=== PATIENT | male | born 1980 | race Caucasian/White ===

== ENCOUNTER 2016-10-15 14:14 | Inpatient (IN) | payer OTHER ==
[2016-10-15] MEDS ORDERED: TYLENOL ONE (14:29)
[2016-10-15] MEDS ORDERED: TYLENOL PO ONE (14:30)
--- NOTE | 2016-10-15 14:59 | Emergency Department Report ---
Chief Complaint: Dyspnea/Respdistress Stated Complaint: COUGH Time Seen by Provider: 10/15/16 14:53 - HPI History of Present Illness: 36-year-old male presents today with persistent productive cough 6 months. Patient was given azithromycin in July and Robitussin without relief. Positive for shortness of breath. Denies chest pain. Also complaining of his throat feeling scratchy. - ROS Review of Systems: Per HPI - Exam Vital Signs: Vital Signs 10/15/16 14:26 Temperature 101.4 F H Pulse Rate 85 Respiratory 18 Rate Blood Pressure 146/101 O2 Sat by Pulse 98 Oximetry Physical Exam: General: 36-year-old male in no acute distress. Well-developed, well-nourished. CV: Regular rate and rhythm. Lungs: Clear to auscultation bilaterally. Abdomen: No tenderness to palpation. MSE screening note: Focused history and physical exam performed. Due to findings the following was ordered: ED Disposition for MSE Condition: Stable
[2016-10-15 15:38] LABS: Hematocrit 45.9 % (35.5-45.6); Hemoglobin 15.3 gm/dl (11.8-15.2); Mean Corpuscular HGB Conc 34 % (32-34); Mean Corpuscular Hemoglobin 32 pg (28-32); Mean Corpuscular Volume 96 fl (84-94); Platelet Count 193 K/mm3 (140-440); Red Blood Count 4.76 M/mm3 (3.65-5.03); Red Cell Distribution Width 14.6 % (13.2-15.2); White Blood Count 9.9 K/mm3 (4.5-11.0)
[2016-10-15 15:46] LABS: BUN/Creatinine Ratio 10.66; Calcium 9.4 mg/dL (8.4-10.2); Potassium 4.2 mmol/L (3.6-5.0)
--- NOTE | 2016-10-15 15:46 | XRay Report ---
CHEST 2 VIEWS INDICATION: Dyspnea. Wheezing, productive cough for 6 months. COMPARISON: None similar at this institution. FINDINGS: PA and lateral chest radiographs, 4 images, demonstrate normal cardiomediastinal silhouette. Clear lungs. Intact bones. CONCLUSION: No acute disease in the chest. Thank you for the opportunity to participate in this patient's care.
[2016-10-15 15:47] LABS: Creatine Kinase MB 2.5 ng/mL (0.0-4.0)
[2016-10-15 15:49] LABS: Creatine Kinase 384 units/L (55-170)
[2016-10-15 16:57] LABS: Basophils % (Manual) 0 % (0.0-1.8); Blastocytes % (Manual) 0 %
[2016-10-15 16:58] LABS: Diff Status Complete; Platelet Estimate Consistent w Auto; RBC Morphology Normal
[2016-10-16] MEDS ORDERED: ATROVENT IH ONE (02:51)
[2016-10-16] MEDS ORDERED: PROVENTIL IH ONE (02:52)
[2016-10-16] MEDS ORDERED: TYLENOL PO ONE (02:52)
[2016-10-16] MEDS ORDERED: TORADOL IV ONE (02:52)
[2016-10-16] MEDS ORDERED: MAGNESIUM SULFATE 2GM/50ML 50 ML IV ONE (02:52)
[2016-10-16] MEDS ORDERED: LEVAQUIN 750MG/150ML 150 ML IV ONE (02:52)
--- NOTE | 2016-10-16 02:53 | Emergency Department Report ---
ED General Adult HPI - General Chief complaint: Dyspnea/Respdistress Stated complaint: COUGH Time Seen by Provider: 10/15/16 14:53 Source: patient, RN notes reviewed Mode of arrival: Ambulatory Limitations: Physical Limitation - History of Present Illness Initial comments: This is a 36-year-old male, previously unknown to me. His primary care doctor is Dr. Osorio. Has a past medical history of hypertension, consumes tobacco and cannabis recreationally. Patient presents to the ER complaining of chest pain and shortness of breath. Admits to fever. Symptoms present for 2 days. There is no lower extremity pain, no lower extremity swelling. No recent trips greater than 4 hours. No recent hospital admissions. Positive cough. Positive mucous production. Denies cocaine use. 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 He states significant decrease in exercise tolerance over the past few days. -: Gradual, days(s) Location: chest Severity scale (0 -10): 3 Quality: aching Consistency: intermittent Improves with: rest Worsens with: movement Associated Symptoms: chest pain, cough, fever/chills, loss of appetite, shortness of breath, weakness - Related Data Allergies Allergy/AdvReac Type Severity Reaction Status Date / Time garlic Allergy Swelling Verified 10/15/16 14:26 ED Review of Systems ROS: Stated complaint: COUGH Other details as noted in HPI Constitutional: fever, malaise, weakness Eyes: denies: eye discharge ENT: congestion. denies: epistaxis Respiratory: shortness of breath, SOB with exertion, SOB at rest Cardiovascular: chest pain, dyspnea on exertion Gastrointestinal: denies: abdominal pain, nausea, diarrhea Genitourinary: denies: urgency, dysuria Musculoskeletal: denies: back pain, joint swelling, arthralgia Skin: denies: rash, lesions Neurological: weakness. denies: headache, paresthesias Psychiatric: anxiety ED Past Medical Hx - Past Medical History Previous Medical History?: Yes Hx Hypertension: Yes - Surgical History Additional Surgical History: Left foot broken/had surgery on - Social History Smoking Status: Current Some Day Smoker Substance Use Type: Alcohol ED Physical Exam - General Limitations: Physical Limitation General appearance: alert, in distress - Head Head exam: Present: atraumatic, normocephalic - Eye Eye exam: Present: normal appearance, EOMI. Absent: nystagmus - ENT ENT exam: Present: normal exam, normal orophraynx, mucous membranes moist, normal external ear exam - Neck Neck exam: Present: normal inspection, full ROM. Absent: tenderness, meningismus - Respiratory Respiratory exam: Present: respiratory distress, wheezes, rhonchi - Cardiovascular Cardiovascular Exam: Present: regular rate, normal rhythm, normal heart sounds. Absent: bradycardia, tachycardia, irregular rhythm, systolic murmur, diastolic murmur, rubs, gallop - GI/Abdominal GI/Abdominal exam: Present: soft, normal bowel sounds. Absent: distended, tenderness, guarding, rigid, pulsatile mass - Rectal Rectal exam: Present: deferred - Extremities Exam Extremities exam: Present: normal inspection, full ROM, normal capillary refill. Absent: tenderness, pedal edema, joint swelling, calf tenderness - Back Exam Back exam: Present: normal inspection, full ROM. Absent: tenderness, CVA tenderness (R), CVA tenderness (L), muscle spasm, paraspinal tenderness, vertebral tenderness - Neurological Exam Neurological exam: Present: alert, oriented X3, other (Extraocular movements intact. Tongue midline. No facial droop. Facial sensation intact to light touch in the V1, V2, V3 distribution bilaterally. 5 and 5 strength in 4 extremities.. Sensation is intact to light touch in 4 extremities.). Absent: motor sensory deficit - Psychiatric Psychiatric exam: Present: normal affect, normal mood - Skin Skin exam: Present: warm, dry, intact, normal color. Absent: rash ED Course Vital Signs 10/15/16 10/16/16 10/16/16 14:26 01:21 01:54 Temperature 101.4 F H 99.7 F H Pulse Rate 85 93 H Pulse Rate [ Bilateral Throughout] Respiratory 18 20 Rate Respiratory Rate [Bilateral Throughout] Blood Pressure 146/101 Blood Pressure 173/93 [Right] O2 Sat by Pulse 98 93 90 Oximetry 10/16/16 10/16/16 10/16/16 02:05 02:08 03:00 Temperature 99.4 F Pulse Rate 83 Pulse Rate [ Bilateral Throughout] Respiratory 22 Rate Respiratory Rate [Bilateral Throughout] Blood Pressure 122/70 151/95 Blood Pressure 122/70 [Right] O2 Sat by Pulse 94 94 92 Oximetry 10/16/16 10/16/16 03:15 04:16 Temperature Pulse Rate Pulse Rate [ 91 H 89 Bilateral Throughout] Respiratory Rate Respiratory 24 22 Rate [Bilateral Throughout] Blood Pressure Blood Pressure [Right] O2 Sat by Pulse Oximetry - Reevaluation(s) Reevaluation #1: 10/16/16 04:43 Differential diagnosis: Bronchitis, pneumonia, viral syndrome, pericarditis, myocarditis, cardiomyopathy Assessment and plan: 36-year-old male with cough, mucus production, wheezing, febrile illness. On room air, he desaturates to 83%. He is diaphoretic with fairly labored breathing. He has no pulmonary embolus or DVT risk factors, and he is low risk by well's criteria. He felt improved albuterol, Atrovent, steroids. Blood cultures are drawn. Antibiotics administered. Given hypoxemia , abnormal EKG, patient to be admitted for further management. Hospital physician, Dr. Giles, accepts the patient to his service. Reevaluation #2: 10/16/16 04:44 I will defer to the inpatient team to follow up on the influenza swab. ED Medical Decision Making - Lab Data Result diagrams: 10/15/16 15:11 10/15/16 15:11 Vital Signs 10/15/16 10/16/16 10/16/16 14:26 01:21 01:54 Temperature 101.4 F H 99.7 F H Pulse Rate 85 93 H Pulse Rate [ Bilateral Throughout] Respiratory 18 20 Rate Respiratory Rate [Bilateral Throughout] Blood Pressure 146/101 Blood Pressure 173/93 [Right] O2 Sat by Pulse 98 93 90 Oximetry 10/16/16 10/16/16 10/16/16 02:05 02:08 03:00 Temperature 99.4 F Pulse Rate 83 Pulse Rate [ Bilateral Throughout] Respiratory 22 Rate Respiratory Rate [Bilateral Throughout] Blood Pressure 122/70 151/95 Blood Pressure 122/70 [Right] O2 Sat by Pulse 94 94 92 Oximetry 10/16/16 10/16/16 03:15 04:16 Temperature Pulse Rate Pulse Rate [ 91 H 89 Bilateral Throughout] Respiratory Rate Respiratory 24 22 Rate [Bilateral Throughout] Blood Pressure Blood Pressure [Right] O2 Sat by Pulse Oximetry Labs 10/15/16 10/15/16 10/15/16 15:11 15:11 15:11 WBC 9.9 RBC 4.76 Hgb 15.3 H Hct 45.9 H MCV 96 H MCH 32 MCHC 34 RDW 14.6 Plt Count 193 Eos % (Auto) [employer]airer Add Manual Diff Complete Total Counted 100 Seg Neuts % (Manual) 66.0 Band Neutrophils % 0 Lymphocytes % (Manual) 6.0 L Reactive Lymphs % (Man) 0 Monocytes % (Manual) 11.0 H Eosinophils % (Manual) 17.0 H Basophils % (Manual) 0 Metamyelocytes % 0 Myelocytes % 0 Promyelocytes % 0 Blast Cells % 0 Nucleated RBC % Not Reportable Seg Neutrophils # Man 6.5 Band Neutrophils # 0.0 Lymphocytes # (Manual) 0.6 L Abs React Lymphs (Man) 0.0 Monocytes # (Manual) 1.1 H Eosinophils # (Manual) 1.7 H Basophils # (Manual) 0.0 Metamyelocytes # 0.0 Myelocytes # 0.0 Promyelocytes # 0.0 Blast Cells # 0.0 WBC Morphology Not Reportable Hypersegmented Neuts Not Reportable Hyposegmented Neuts Not Reportable Hypogranular Neuts Not Reportable Smudge Cells Not Reportable Toxic Granulation Not Reportable Toxic Vacuolation Not Reportable Dohle Bodies Not Reportable Pelger-Huet Anomaly Not Reportable Lizette Rods Not Reportable Platelet Estimate Consistent w auto Clumped Platelets Not Reportable Plt Clumps, EDTA Not Reportable Large Platelets Not Reportable Giant Platelets Not Reportable Platelet Satelliting Not Reportable Plt Morphology Comment Not Reportable RBC Morphology Normal Dimorphic RBCs Not Reportable Polychromasia Not Reportable Hypochromasia Not Reportable Poikilocytosis Not Reportable Anisocytosis Not Reportable Microcytosis Not Reportable Macrocytosis Not Reportable Spherocytes Not Reportable Pappenheimer Bodies Not Reportable Sickle Cells Not Reportable Target Cells Not Reportable Tear Drop Cells Not Reportable Ovalocytes Not Reportable Helmet Cells Not Reportable Mathew-[place]hip Bodies Not Reportable [place] Rings Not Reportable [place] Cells Not Reportable Bite Cells Not Reportable Crenated Cell Not Reportable Elliptocytes Not Reportable Acanthocytes (Spur) Not Reportable Rouleaux Not Reportable Hemoglobin C Crystals Not Reportable Schistocytes Not Reportable Malaria parasites Not Reportable Ramon Bodies Not Reportable Hem Pathologist Commnt No POC ABG pH POC ABG pCO2 POC ABG pO2 POC ABG HCO3 POC ABG Total CO2 POC ABG O2 Sat POC ABG Base Excess FiO2 Sodium 139 Potassium 4.2 Chloride 101.0 Carbon Dioxide 25 Anion Gap 17 BUN 16 Creatinine 1.5 Estimated GFR 53 BUN/Creatinine Ratio 10.66 Glucose 92 Lactic Acid Calcium 9.4 Total Creatine Kinase 384 H CK-MB (CK-2) 2.5 CK-MB (CK-2) Rel Index 0.6 Troponin T < 0.010 NT-Pro-B Natriuret Pep 10/16/16 10/16/16 10/16/16 03:03 03:03 03:24 WBC RBC Hgb Hct MCV MCH MCHC RDW Plt Count Eos % (Auto) Add Manual Diff Total Counted Seg Neuts % (Manual) Band Neutrophils % Lymphocytes % (Manual) Reactive Lymphs % (Man) Monocytes % (Manual) Eosinophils % (Manual) Basophils % (Manual) Metamyelocytes % Myelocytes % Promyelocytes % Blast Cells % Nucleated RBC % Seg Neutrophils # Man Band Neutrophils # Lymphocytes # (Manual) Abs React Lymphs (Man) Monocytes # (Manual) Eosinophils # (Manual) Basophils # (Manual) Metamyelocytes # Myelocytes # Promyelocytes # Blast Cells # WBC Morphology Hypersegmented Neuts Hyposegmented Neuts Hypogranular Neuts Smudge Cells Toxic Granulation Toxic Vacuolation Dohle Bodies Pelger-Huet Anomaly Lizette Rods Platelet Estimate Clumped Platelets Plt Clumps, EDTA Large Platelets Giant Platelets Platelet Satelliting Plt Morphology Comment RBC Morphology Dimorphic RBCs Polychromasia Hypochromasia Poikilocytosis Anisocytosis Microcytosis Macrocytosis Spherocytes Pappenheimer Bodies Sickle Cells Target Cells Tear Drop Cells Ovalocytes Helmet Cells Mathew-[place] Bodies [place] Rings [place] Cells Bite Cells Crenated Cell Elliptocytes Acanthocytes (Spur) Rouleaux Hemoglobin C Crystals Schistocytes Malaria parasites Ramon Bodies Hem Pathologist Commnt POC ABG pH 7.355 POC ABG pCO2 39.6 POC ABG pO2 55 L POC ABG HCO3 22.1 POC ABG Total CO2 23 POC ABG O2 Sat 87 POC ABG Base Excess -3 FiO2 21 Sodium Potassium Chloride Carbon Dioxide Anion Gap BUN Creatinine Estimated GFR BUN/Creatinine Ratio Glucose Lactic Acid 0.9 Calcium Total Creatine Kinase 445 H CK-MB (CK-2) CK-MB (CK-2) Rel Index Troponin T < 0.010 NT-Pro-B Natriuret Pep 412.8 10/16/16 04:03 WBC RBC Hgb Hct MCV MCH MCHC RDW Plt Count Eos % (Auto) Add Manual Diff Total Counted Seg Neuts % (Manual) Band Neutrophils % Lymphocytes % (Manual) Reactive Lymphs % (Man) Monocytes % (Manual) Eosinophils % (Manual) Basophils % (Manual) Metamyelocytes % Myelocytes % Promyelocytes % Blast Cells % Nucleated RBC % Seg Neutrophils # Man Band Neutrophils # Lymphocytes # (Manual) Abs React Lymphs (Man) Monocytes # (Manual) Eosinophils # (Manual) Basophils # (Manual) Metamyelocytes # Myelocytes # Promyelocytes # Blast Cells # WBC Morphology Hypersegmented Neuts Hyposegmented Neuts Hypogranular Neuts Smudge Cells Toxic Granulation Toxic Vacuolation Dohle Bodies Pelger-Huet Anomaly Lizette Rods Platelet Estimate Clumped Platelets Plt Clumps, EDTA Large Platelets Giant Platelets Platelet Satelliting Plt Morphology Comment RBC Morphology Dimorphic RBCs Polychromasia Hypochromasia Poikilocytosis Anisocytosis Microcytosis Macrocytosis Spherocytes Pappenheimer Bodies Sickle Cells Target Cells Tear Drop Cells Ovalocytes Helmet Cells Mathew-Wanship Bodies [place] Rings [place] Cells Bite Cells Crenated Cell Elliptocytes Acanthocytes (Spur) Rouleaux Hemoglobin C Crystals Schistocytes Malaria parasites Ramon Bodies Hem Pathologist Commnt POC ABG pH POC ABG pCO2 POC ABG pO2 POC ABG HCO3 POC ABG Total CO2 POC ABG O2 Sat POC ABG Base Excess FiO2 Sodium Potassium Chloride Carbon Dioxide Anion Gap BUN Creatinine Estimated GFR BUN/Creatinine Ratio Glucose Lactic Acid 1.2 Calcium Total Creatine Kinase CK-MB (CK-2) CK-MB (CK-2) Rel Index Troponin T NT-Pro-B Natriuret Pep - EKG Data 10/16/16 04:44 normal sinus, 85 bpm, borderline first-degree AV block, T-wave inversion V4, V5 and V6, abnormal EKG, not morphologically consistent with STEMI. There is no prior EKG available for comparison - Radiology Data Radiology results: report reviewed, image reviewed X-ray chest negative for acute disease. Critical care attestation.: If time is entered above; I have spent that time in minutes in the direct care of this critically ill patient, excluding procedure time. ED Disposition Clinical Impression: Abnormal EKG Respiratory failure Qualifiers: Chronicity: acute Respiratory failure complication: hypoxia Qualified Code(s): J96.01 - Acute respiratory failure with hypoxia Disposition: OP ADMITTED IP TO THIS HOSP Is pt being admited?: Yes Does the pt Need Aspirin: Yes Condition: Good
[2016-10-16 03:37] LABS: Creatine Kinase 445 units/L (55-170)
[2016-10-16 03:37] LABS: ISTAT Base Excess -3; ISTAT DEVICE 0; ISTAT HCO3 22.1; ISTAT PCO2 39.6 (35-45); ISTAT PH 7.355 (7.35-7.45); ISTAT PO2 55 (80-105); ISTAT SO2 87; ISTAT TCO2 23
--- NOTE | 2016-10-16 03:44 | History and Physical Report ---
History of Present Illness Date of examination: 10/16/16 Date of admission: 10/16/16 Chief complaint: cough, wheezing History of present illness: This is a 36-year-old male presents with chief complaint of cough and audible wheezing that has progressively worsened over the past 6 months. Patient also reports some rhinorrhea, postnasal drainage and yellow sputum production. Patient denies any history of asthma or COPD. Patient does admit to occupational exposure with working at a [employer] that he began approximately 8 months ago. Patient states that he no longer works there. This and denies any fever or chills. Patient denies any nausea, vomiting or diarrhea. No hematochezia or hematemesis. No headache no visual disturbances. Past History Past Medical History: hypertension Past Surgical History: No surgical history Social history: smoking, alcohol abuse Family history: no significant family history Medications and Allergies Allergies Allergy/AdvReac Type Severity Reaction Status Date / Time garlic Allergy Swelling Verified 10/15/16 14:26 Active Meds: Active Medications Levofloxacin/Dextrose (Levaquin 750mg/150ml) 150 mls @ 100 mls/hr IV ONCE ONE Stop: 10/16/16 04:21 Review of Systems All systems: negative Exam - Constitutional Vitals: Temp Pulse Resp BP Pulse Ox 99.4 F 91 H 24 122/70 94 10/16/16 02:05 10/16/16 03:15 10/16/16 03:15 10/16/16 02:05 10/16/16 02:05 General appearance: Present: no acute distress, well-nourished - EENT Eyes: Present: PERRL ENT: hearing intact, clear oral mucosa - Neck Neck: Present: supple, normal ROM - Respiratory Respiratory effort: normal Respiratory: bilateral: diminished, rhonchi, wheezing - Cardiovascular Heart Sounds: Present: S1 & S2. Absent: rub, click - Extremities Extremities: pulses symmetrical, No edema Peripheral Pulses: within normal limits - Abdominal General gastrointestinal: Present: soft, non-tender, non-distended, normal bowel sounds Male genitourinary: Present: normal - Integumentary Integumentary: Present: clear, warm, dry - Musculoskeletal Musculoskeletal: gait normal, strength equal bilaterally - Psychiatric Psychiatric: appropriate mood/affect, intact judgment & insight - Neurologic Neurologic: CNII-XII intact, moves all extremities Results - Labs CBC & Chem 7: 01/16/17 15:11 10/15/16 15:11 Labs: Laboratory Last Values WBC 9.9 K/mm3 (4.5-11.0) 10/15/16 15:11 RBC 4.76 M/mm3 (3.65-5.03) 10/15/16 15:11 Hgb 15.3 gm/dl (11.8-15.2) H 10/15/16 15:11 Hct 45.9 % (35.5-45.6) H 10/15/16 15:11 MCV 96 fl (84-94) H 10/15/16 15:11 MCH 32 pg (28-32) 10/15/16 15:11 MCHC 34 % (32-34) 10/15/16 15:11 RDW 14.6 % (13.2-15.2) 10/15/16 15:11 Plt Count 193 K/mm3 (140-440) 10/15/16 15:11 Eos % (Auto) Rn Employee Health 10/15/16 15:11 Add Manual Diff Complete 10/15/16 15:11 Total Counted 100 10/15/16 15:11 Seg Neuts % (Manual) 66.0 % (40.0-70.0) 10/15/16 15:11 Band Neutrophils % 0 % 10/15/16 15:11 Lymphocytes % (Manual) 6.0 % (13.4-35.0) L 10/15/16 15:11 Reactive Lymphs % (Man) 0 % 10/15/16 15:11 Monocytes % (Manual) 11.0 % (0.0-7.3) H 10/15/16 15:11 Eosinophils % (Manual) 17.0 % (0.0-4.3) H 10/15/16 15:11 Basophils % (Manual) 0 % (0.0-1.8) 10/15/16 15:11 Metamyelocytes % 0 % 10/15/16 15:11 Myelocytes % 0 % 10/15/16 15:11 Promyelocytes % 0 % 10/15/16 15:11 Blast Cells % 0 % 10/15/16 15:11 Nucleated RBC % Not Reportable 10/15/16 15:11 Seg Neutrophils # Man 6.5 K/mm3 (1.8-7.7) 10/15/16 15:11 Band Neutrophils # 0.0 K/mm3 10/15/16 15:11 Lymphocytes # (Manual) 0.6 K/mm3 (1.2-5.4) L 10/15/16 15:11 Abs React Lymphs (Man) 0.0 K/mm3 10/15/16 15:11 Monocytes # (Manual) 1.1 K/mm3 (0.0-0.8) H 10/15/16 15:11 Eosinophils # (Manual) 1.7 K/mm3 (0.0-0.4) H 10/15/16 15:11 Basophils # (Manual) 0.0 K/mm3 (0.0-0.1) 10/15/16 15:11 Metamyelocytes # 0.0 K/mm3 10/15/16 15:11 Myelocytes # 0.0 K/mm3 10/15/16 15:11 Promyelocytes # 0.0 K/mm3 10/15/16 15:11 Blast Cells # 0.0 K/mm3 10/15/16 15:11 WBC Morphology Not Reportable 10/15/16 15:11 Hypersegmented Neuts Not Reportable 10/15/16 15:11 Hyposegmented Neuts Not Reportable 10/15/16 15:11 Hypogranular Neuts Not Reportable 10/15/16 15:11 Smudge Cells Not Reportable 10/15/16 15:11 Toxic Granulation Not Reportable 10/15/16 15:11 Toxic Vacuolation Not Reportable 10/15/16 15:11 Dohle Bodies Not Reportable 10/15/16 15:11 Pelger-Huet Anomaly Not Reportable 10/15/16 15:11 Lizette Rods Not Reportable 10/15/16 15:11 Platelet Estimate Consistent w auto 10/15/16 15:11 Clumped Platelets Not Reportable 10/15/16 15:11 Plt Clumps, EDTA Not Reportable 10/15/16 15:11 Large Platelets Not Reportable 10/15/16 15:11 Giant Platelets Not Reportable 10/15/16 15:11 Platelet Satelliting Not Reportable 10/15/16 15:11 Plt Morphology Comment Not Reportable 10/15/16 15:11 RBC Morphology Normal 10/15/16 15:11 Dimorphic RBCs Not Reportable 10/15/16 15:11 Polychromasia Not Reportable 10/15/16 15:11 Hypochromasia Not Reportable 10/15/16 15:11 Poikilocytosis Not Reportable 10/15/16 15:11 Anisocytosis Not Reportable 10/15/16 15:11 Microcytosis Not Reportable 10/15/16 15:11 Macrocytosis Not Reportable 10/15/16 15:11 Spherocytes Not Reportable 10/15/16 15:11 Pappenheimer Bodies Not Reportable 10/15/16 15:11 Sickle Cells Not Reportable 10/15/16 15:11 Target Cells Not Reportable 10/15/16 15:11 Tear Drop Cells Not Reportable 10/15/16 15:11 Ovalocytes Not Reportable 10/15/16 15:11 Helmet Cells Not Reportable 10/15/16 15:11 Mathew-[place] Bodies Not Reportable 10/15/16 15:11 [place] Rings Not Reportable 10/15/16 15:11 Troy Cells Not Reportable 10/15/16 15:11 Bite Cells Not Reportable 10/15/16 15:11 Crenated Cell Not Reportable 10/15/16 15:11 Elliptocytes Not Reportable 10/15/16 15:11 Acanthocytes (Spur) Not Reportable 10/15/16 15:11 Rouleaux Not Reportable 10/15/16 15:11 Hemoglobin C Crystals Not Reportable 10/15/16 15:11 Schistocytes Not Reportable 10/15/16 15:11 Malaria parasites Not Reportable 10/15/16 15:11 Ramon Bodies Not Reportable 10/15/16 15:11 Hem Pathologist Commnt No 10/15/16 15:11 POC ABG pH 7.355 (7.35-7.45) 10/16/16 03:24 POC ABG pCO2 39.6 (35-45) 10/16/16 03:24 POC ABG pO2 55 (80-105) L 10/16/16 03:24 POC ABG HCO3 22.1 10/16/16 03:24 POC ABG Total CO2 23 10/16/16 03:24 POC ABG O2 Sat 87 10/16/16 03:24 POC ABG Base Excess -3 10/16/16 03:24 FiO2 21 % 10/16/16 03:24 Sodium 139 mmol/L (137-145) 10/15/16 15:11 Potassium 4.2 mmol/L (3.6-5.0) 10/15/16 15:11 Chloride 101.0 mmol/L (98-107) 10/15/16 15:11 Carbon Dioxide 25 mmol/L (22-30) 10/15/16 15:11 Anion Gap 17 mmol/L 10/15/16 15:11 BUN 16 mg/dL (9-20) 10/15/16 15:11 Creatinine 1.5 mg/dL (0.8-1.5) 10/15/16 15:11 Estimated GFR 53 ml/min 10/15/16 15:11 BUN/Creatinine Ratio 10.66 % 10/15/16 15:11 Glucose 92 mg/dL (75-100) 10/15/16 15:11 Lactic Acid 0.9 mmol/L (0.7-2.0) 10/16/16 03:03 Calcium 9.4 mg/dL (8.4-10.2) 10/15/16 15:11 Total Creatine Kinase 445 units/L (55-170) H 10/16/16 03:03 CK-MB (CK-2) 2.5 ng/mL (0.0-4.0) 10/15/16 15:11 CK-MB (CK-2) Rel Index 0.6 (0-4) 10/15/16 15:11 Troponin T < 0.010 ng/mL (0.00-0.029) 10/16/16 03:03 NT-Pro-B Natriuret Pep 412.8 pg/mL (0-450) 10/16/16 03:03 Assessment and Plan Assessment and plan: 1. Reactive airway disease. Patient reports recent history of occupational exposure at [employer] and also has history of tobacco use. Patient will be treated with Solu-Medrol, nebulizer and O2 for supportive care. Follow-up repeat chest x-ray. 2. Acute hypoxemic respiratory failure. ABG reveals PO2 of 55. Initial chest x-ray is negative. Continue O2 for supportive care. 3. Sepsis/SIRS. Patient does have significant fever, tachycardia and probable underlying acute bronchitis. However, no evidence of leukocytosis and lactic acid level normal. We will treat with antibiotics. 4. Hypertension. We'll resume antihypertensive medications. 5. Acute bronchitis. As above. 6. Tobacco use. Patient will be counseled on tobacco cessation.
[2016-10-16] MEDS ORDERED: DULCOLAX PR PRN (03:50)
[2016-10-16] MEDS ORDERED: TYLENOL PO PRN (03:50)
[2016-10-16] MEDS ORDERED: MILK OF MAGNESIA PO PRN (03:50)
[2016-10-16] MEDS ORDERED: ZOFRAN IV PRN (03:50)
[2016-10-16] MEDS ORDERED: BABY ASPIRIN PO ONE (04:46)
[2016-10-16] MEDS: LEVAQUIN 500MG/100ML 100 ML IV SCH ×2 (06:08→10:08)
[2016-10-16] MEDS ORDERED: BABY ASPIRIN ONE (06:10)
[2016-10-16] MEDS: DUONEB 0.5 MG-3 MG/3 ML SOLN IH SCH ×3 (07:40→22:05)
--- NOTE | 2016-10-16 09:37 | Admit Criteria Form ---
Admission Criteria Documentation: PULMONARY DISEASE GRG Clinical Indications for Admission to Inpatient Care ( Place 'X' for any and all applicable criteria): Hospital admission is needed for appropriate care of the patient because of ANY ONE of the following(1): [ ]I. Impending or actual respiratory arrest ( Use Respiratory Failure Criteria for severe respiratory disease and long-term mechanical ventilation patients) (4) [ ]II. Severe airflow or ventilation abnormalities (not responsive to emergency and observation care treatment as appropriate) as indicated by ANY ONE of the following(5)(6)(7)(8) : [ ]a) PCO2 > 42 mm Hg (5.6 kPa) and pH < 7.35 (new) [ ]b) Documented PCO2 increase > 5 mm Hg (0.7 kPa) from disease baseline [ ]c) Airflow measurements[A] < 60% of previous best or predicted ( e.g., PEF <300 L/minute) despite intensive emergent treatment[B] [ ]d) Required respiratory treatments that are performable only in acute inpatient setting [X ]III. Severe respiratory findings (not responsive to emergency and observation care treatment as appropriate) including ANY ONE of the following(5)(8)(9): [X ]a) Respiratory distress as indicated by ALL of the following(5)(10) : [X ]i) Patient with ANY ONE of the following: [X ]1) Dyspnea (difficulty breathing) [ ]2) Abnormal breathing pattern (eg, chest retractions) [ ]3) Tachypnea [ ]4) Other evidence of difficulty breathing [X ]ii) Evidence of respiratory compromise indicated by ANY ONE of the following: [ X]1) Hypoxemia [ ]2) Altered mental status [ ]3) Other evidence of respiratory compromise (eg, pulmonary edema on chest x-ray) [ ]b) Stridor [ ]c) Gross hemoptysis(11) [ ]d) Acute cyanosis [ ]IV. High-risk pulmonary infection as indicated by ANY ONE of the following( 19)(20)(21)(22): [ ]a) Temperature less than 95 degrees F(35 degrees C) or greater than 103.1 degrees F(39.5 degrees C) [ ]b) Hemodynamic instability that remains after emergency or observation level care (as appropriate) [ ]c) Immunocompromised patient (eg, AIDS, post transplant, neutropenic) [ ]d) History of severe COPD [ ]e) History of severely symptomatic congestive heart failure [ ]f) Other high-risk comorbidity (eg, poorly controlled diabetes, cirrhosis, chronic renal insufficiency) [ ]g) Hypoxemia (new) [ ]h) Outpatient, observation, or recovery facility therapy has failed, is not appropriate, or is not feasible [ ]V. Severe atelectasis or lung collapse(15)(16) [ ]. Tuberculosis requiring inpatient treatment as indicated by ANY ONE of the following(17)(18): [ ]a) New positive acid-fast bacilli sputum smear [ ]b) Positive acid-fast bacilli smear (under current treatment), with ANY ONE of the following: [ ]i) Unexposed household contacts [ ]ii) Infants or immunosuppressed household contacts [ ]iii) Patient unable or unwilling to avoid exposing others [ ]iv) Severe immunocompromised patient (eg, AIDS, post transplant, neutropenic) [ ]VII. Empyema or lung abscess(13)(14) [ ]VIII. Severe pulmonary arterial hypertension or pulmonary vascular disease requiring inpatient care indicated by ANY ONE of the following(24)(25): [ ]a) Initiation or change of vasodilators (IV, subcutaneous, or inhaled) or other vasoactive medications needed [ ]b) IV anticoagulation needed (eg, immediate anticoagulation necessary, alternatives not appropriate) [ ]c) Arterial or pulmonary artery catheter monitoring needed due to infusion or other treatment [ ]IX. Chronic lung disease with severe deterioration (not responsive to emergency and observation care treatment as appropriate) as indicated by ANY ONE of the following (6)(12): [ ]a) SaO2 5% below baseline in patient with chronic hypoxemia [ ]b) New requirement for supplemental oxygen to keep SaO2 at baseline or acceptable level [ ]c) Required supplemental oxygen performable only in acute inpatient setting [ ]d) Severe airflow or ventilation abnormalities [ ]e) Rapid rate of exacerbation onset [ ]f) Previously mobile patient unable to walk between rooms [ ]g) Inability to eat or sleep due to dyspnea [ ]h) Altered mental status [ ]X. Cystic fibrosis with severe deterioration as indicated by ANY ONE of the following(26)(27): [ ]a) Severe exacerbation that does not respond to intensified home therapy [ ]b) Pneumonia [ ]c) Hemoptysis [ ]d) Atelectasis [ ]e) Pneumothorax [ ]f) Respiratory failure [ ]g) Severe exacerbation with patient unable to perform prescribed treatments at home [ ]XI. Severe right heart failure as indicated by ANY ONE of the following(24) (25): [ ]a) Increasing organ failure (eg, liver congestion with significant and worsening or new elevation of transaminases) [ ]b) Anasarca [ ]c) Angina that requires inpatient care (eg, not treatable in emergency or observation level of care) [ ]d) Respiratory distress [ ]e) Syncope [ ]f) SBP < 90 mm Hg (new) [ ]XII. Injury requiring inpatient care (medical) as indicated by ANY ONE of the following(28): [ ]a) Significant inhalation injury (eg, smoke inhalation, other toxic inhalation) (29)(30)(31) [ ]b) Airway obstruction that remains or is unstable after emergency or observation level care(32) [ ]c) Severe pain requiring acute inpatient management [ ]d) Lung contusion [ ]e) Bronchial tree injury [ ]f) Air or fat emboli(33) [ ]g) Other injury not treatable in emergency or observation level care (eg, hemothorax) (34) [ ]XIII. Pulmonary hemorrhage or significant hemoptysis(11)(35)(36) [ ]XIV. Inpatient palliative care needed[C](37)(38)(39)(40) [ ]XV. Complications of lung transplant (eg, rejection, failure, respiratory infection) (23) [ ]XVI. Pulmonary Disease and ANY ONE of the following: [ ]a) General Admission Criteria [ ]b) Pediatric General Admission Criteria The original [facility] content [facility] by [facility] has been revised. The portions of the content which have been revised are identified through the use of italic text or in bold, and [facility] has neither reviewed nor approved the modified material. All other unmodified content is copyright [facility]. Please see references footnoted in the original [facility] edition 2016 Admission Criteria Met: Yes
[2016-10-16] MEDS ORDERED: LOVENOX SUB-Q SCH (10:00)
[2016-10-16] MEDS: NACL 0.9% 1000 ML 1,000 ML IV SCH ×2 (10:08→23:23)
--- NOTE | 2016-10-16 11:24 | Event Note ---
Date: 10/16/16 Patient presents with cough, wheezing, shortness of breath. Was hypoxic in ED. He was seen and examined. Will check d-dimer. Consult Pulm.
[2016-10-16] MEDS: LOVENOX SUB-Q SCH (23:00)
[2016-10-17] MEDS: DUONEB 0.5 MG-3 MG/3 ML SOLN IH SCH ×4 (01:08→19:59)
[2016-10-17] MEDS: PERCOCET 5/325 PO PRN ×3 (02:23→21:46)
[2016-10-17 07:57] LABS: Basophils % (Auto) 0.3 % (0.0-1.8); Eosinophils % (Auto) 0.1 % (0.0-4.3); Hematocrit 44.1 % (35.5-45.6); Hemoglobin 14.5 gm/dl (11.8-15.2); Mean Corpuscular HGB Conc 33 % (32-34); Mean Corpuscular Hemoglobin 32 pg (28-32); Mean Corpuscular Volume 96 fl (84-94); Platelet Count 173 K/mm3 (140-440); Red Blood Count 4.57 M/mm3 (3.65-5.03); Red Cell Distribution Width 14.6 % (13.2-15.2); White Blood Count 10.5 K/mm3 (4.5-11.0)
[2016-10-17 08:08] LABS: BUN/Creatinine Ratio 15.29; Calcium 8.6 mg/dL (8.4-10.2); Chloride 102.7 mmol/L (98-107); Potassium 4.5 mmol/L (3.6-5.0)
--- NOTE | 2016-10-17 09:54 | Nuclear Medicine Report ---
Ventilation/perfusion lung scan: Upright ventilation imaging demonstrates normal distribution of radionuclide however on the washout images there is retention in the base of the left lung and the upper right lung. Perfusion imaging with multiple obliquities demonstrates a somewhat patchy distribution of radionuclide throughout both lungs. There is a somewhat patchy distribution of radionuclide in the superior right lung and also in the mid left lung. No segmental or subsegmental areas of radionuclide deficiency however are identified. Impressions: There is a partial ventilation/perfusion correlation. The findings have a relatively low suspicion for pulmonary embolus.
[2016-10-17] MEDS: LEVAQUIN 500MG/100ML 100 ML IV SCH (10:06)
--- NOTE | 2016-10-17 10:06 | XRay Report ---
CHEST 2 VIEWS INDICATION: Persistent cough. COMPARISON: None/. FINDINGS: PA and lateral chest radiographs demonstrates poor inspiration with slight exaggerated, though grossly stable cardiomediastinal silhouette. Lungs remain clear. Intact bones. CONCLUSION: Mild hypoinflation without acute disease in the chest. Thank you for the opportunity to participate in this patient's care.
[2016-10-17] MEDS: LOVENOX SUB-Q SCH ×2 (10:07→21:48)
[2016-10-17] MEDS ORDERED: FLUARIX QUAD 2016-2017(36 MOS+) IM ONE (12:00)
[2016-10-17] MEDS ORDERED: PNEUMOVAX 23 IM ONE (12:00)
[2016-10-17] MEDS: NACL 0.9% 1000 ML 1,000 ML IV SCH ×2 (12:03→18:49)
--- NOTE | 2016-10-17 15:48 | Consultation ---
History of Present Illness Consult date: 10/17/16 Requesting physician: BRENDA JULIAN Reason for consult: dyspnea, cough History of present illness: 36 y/o male with hypertension on lisinopril admitted with 6 months of cough and most recently an acute episode of shortness of breath. Per patient cough started around the 02 of April. Has had 2 rounds of abx therapy and 2 CXR as an outpatient with no relief. Developed some shortness of breath so came to the ED. Borderline hypoxic at admission with a PaO2 of 55 on room air. Started on steroids and abx. Per patient cough worse at night when lying down to go to sleep. He eats spicy food daily and he drinks a lot of caffeine. He also likes chocolate. He has no history of asthma or any other breathing problems prior to this event. He does smoke, but it is not cigarettes. He used to work at a [employer] but has since quit. Remainder of the review is negative for new pets, new detergents, new carpets, new fragrances. He also denies post nasal drip. Past History Past Medical History: hypertension Past Surgical History: No surgical history Social history: smoking, alcohol abuse Family history: no significant family history Medications and Allergies Allergies Allergy/AdvReac Type Severity Reaction Status Date / Time garlic Allergy Swelling Verified 10/15/16 14:26 Home Medications Medication Instructions Recorded Confirmed Last Taken Type Amlodipine Besylate [Norvasc] 10 mg PO DAILY 10/16/16 10/16/16 Unknown History Lisinopril [Zestril] 20 mg PO QDAY 10/16/16 10/16/16 Unknown History Metoprolol Tartrate [Lopressor] 100 mg PO QDAY 10/16/16 10/16/16 Unknown History Triamter/Hctz 75-50 mg [Maxzide 1 tab PO QDAY 10/16/16 10/16/16 Unknown History 75-50 mg] Active Meds: Active Medications Acetaminophen (Tylenol) 650 mg PO Q4H PRN PRN Reason: Pain MILD(1-3)/Fever >100.5/BELTRE Albuterol/Ipratropium (Duoneb 0.5 Mg-3 Mg/3 Ml Soln) 1 ampul IH Q6HRT FREDDY Last Admin: 10/17/16 14:25 Dose: 1 ampul Bisacodyl (Dulcolax) 10 mg NC QDAY PRN PRN Reason: Constipation unrelieved by MOM Enoxaparin Sodium (Lovenox) 100 mg SUB-Q Q12HR FREDDY Last Admin: 10/17/16 10:07 Dose: 100 mg Sodium Chloride (Nacl 0.9% 1000 Ml) 1,000 mls @ 150 mls/hr IV DIRECT FREDDY Last Admin: 10/17/16 12:03 Dose: 150 mls/hr Magnesium Hydroxide (Milk Of Magnesia) 30 ml PO Q4H PRN PRN Reason: Constipation Ondansetron HCl (Zofran) 4 mg IV Q8H PRN PRN Reason: N/V unrelieved by Reglan Oxycodone/Acetaminophen (Percocet 5/325) 1 tab PO Q6H PRN PRN Reason: Pain, Moderate (4-6) Last Admin: 10/17/16 12:10 Dose: 1 tab Review of Systems All systems: negative Physical Examination Vital signs: Vital Signs Temp Pulse Resp BP Pulse Ox 101.4 F H 85 18 146/101 98 10/15/16 14:26 10/15/16 14:26 10/15/16 14:26 10/15/16 14:26 10/15/16 14:26 General appearance: no acute distress, alert Eyes: non-icteric ENT: oropharynx moist Neck: supple, no lymphadenopathy Ascultation: Bilateral: clear Percussion: Bilateral: not dull Tactile fremitus: Bilateral: normal Cardiovascular: regular rate and rhythm Gastrointestinal: normoactive bowel sounds, non-tender, non-distended Integumentary: normal Extremities: no cyanosis, no edema, pink and warm, pulses normal Musculoskeletal: no deformities normal mental status, non-focal exam mood appropriate Results - Laboratory Findings CBC and BMP: 10/17/16 07:23 10/17/16 07:23 ABG POC ABG pH 7.355 (7.35-7.45) 10/16/16 03:24 POC ABG pCO2 39.6 (35-45) 10/16/16 03:24 POC ABG pO2 55 (80-105) L 10/16/16 03:24 POC ABG HCO3 22.1 10/16/16 03:24 POC ABG Total CO2 23 10/16/16 03:24 POC ABG O2 Sat 87 10/16/16 03:24 PT/INR, D-dimer D-Dimer 549.28 ng/mlDDU (0-234) H 10/16/16 17:39 Abnormal lab findings: Abnormal Labs 10/16/16 10/16/16 10/17/16 06:48 17:39 07:23 MCV 96 H Lymph % (Auto) 9.2 L Lymph # 1.0 L Seg Neutrophils % 86.7 H Seg Neutrophils # 9.1 H D-Dimer 549.28 H BUN Creatinine Glucose Lactic Acid 3.4 H* 10/17/16 07:23 MCV Lymph % (Auto) Lymph # Seg Neutrophils % Seg Neutrophils # D-Dimer BUN 26 H Creatinine 1.7 H Glucose 126 H Lactic Acid - Diagnostic Findings Chest x-ray: image reviewed (clear CXR) Assessment and Plan 36 y/o male with chronic cough, most likely secondary to uncontrolled acid reflux. 1. BID PPI 2. Will change steroids to prednisone daily starting tomorrow 3. Long discussion with patient at bedside about types of food to eat. I have asked that he refrain from spicy foods, caffeine, chocolate, mint candies and coffee for the next 2 weeks. 4. He can be discharged to home tomorrow with BID PPI script and Prednisone 30 , 20x2, 10x2 then stop. 5. Follow up with Dr. oBles in 2-3 weeks, if no improvement on this therapy, may need to consider stopping mariam
[2016-10-17 16:43] LABS: BUN/Creatinine Ratio 19.33; Calcium 8.6 mg/dL (8.4-10.2); Chloride 100.7 mmol/L (98-107); Potassium 4.3 mmol/L (3.6-5.0)
[2016-10-17] MEDS: PROTONIX PO SCH (21:46)
[2016-10-18] MEDS: DUONEB 0.5 MG-3 MG/3 ML SOLN IH SCH ×3 (02:13→14:19)
--- NOTE | 2016-10-18 02:28 | Progress Note ---
Assessment and Plan Assessment and plan: Acute respiratory failure. Etiology unclear. He desaturated down to 88%. Continue supplemental Oxygen. V/Q scan low probability of PE. Will d/c Lovenox full dose. Acute bronchitis. On steroids, nebs. Hypertension. Will switch to Norvasc as Lisinopril may be causing cough. Full code status. History Interval history: cough shortness of breath Desat on room air down to 88% Hospitalist Physical - Physical exam Narrative exam: Gen appearance : not in acute distress, HEENT: Normocephalic atraumatic, Neck: supple, no JVD. Lungs: clear to auscultation bilaterally, no crackles no wheezes Heart: S1 and S2 regular, no murmurs no gallop Abdomen: soft, non-tender, non-distended ,normal bowel sounds Extremities: No edema, no clubbing or cyanosis Neuro: Awake alert oriented 3, no focal signs - Constitutional Vitals: Temp Pulse Resp BP Pulse Ox 98.1 F 77 18 156/92 91 10/17/16 22:59 10/17/16 22:59 10/17/16 22:59 10/17/16 22:59 10/17/16 22:59 Results - Labs CBC & Chem 7: 10/17/16 07:23 10/17/16 16:07 Labs: Laboratory Last Values WBC 10.5 K/mm3 (4.5-11.0) 10/17/16 07:23 RBC 4.57 M/mm3 (3.65-5.03) 10/17/16 07:23 Hgb 14.5 gm/dl (11.8-15.2) 10/17/16 07:23 Hct 44.1 % (35.5-45.6) 10/17/16 07:23 MCV 96 fl (84-94) H 10/17/16 07:23 MCH 32 pg (28-32) 10/17/16 07:23 MCHC 33 % (32-34) 10/17/16 07:23 RDW 14.6 % (13.2-15.2) 10/17/16 07:23 Plt Count 173 K/mm3 (140-440) 10/17/16 07:23 Lymph % (Auto) 9.2 % (13.4-35.0) L 10/17/16 07:23 [place] % (Auto) 3.7 % (0.0-7.3) 10/17/16 07:23 Eos % (Auto) 0.1 % (0.0-4.3) 10/17/16 07:23 Baso % (Auto) 0.3 % (0.0-1.8) 10/17/16 07:23 Lymph # 1.0 K/mm3 (1.2-5.4) L 10/17/16 07:23 [place] # 0.4 K/mm3 (0.0-0.8) 10/17/16 07:23 Eos # 0.0 K/mm3 (0.0-0.4) 10/17/16 07:23 Baso # 0.0 K/mm3 (0.0-0.1) 10/17/16 07:23 Add Manual Diff Complete 10/15/16 15:11 Total Counted 100 10/15/16 15:11 Seg Neutrophils % 86.7 % (40.0-70.0) H 10/17/16 07:23 Seg Neuts % (Manual) 66.0 % (40.0-70.0) 10/15/16 15:11 Band Neutrophils % 0 % 10/15/16 15:11 Lymphocytes % (Manual) 6.0 % (13.4-35.0) L 10/15/16 15:11 Reactive Lymphs % (Man) 0 % 10/15/16 15:11 Monocytes % (Manual) 11.0 % (0.0-7.3) H 10/15/16 15:11 Eosinophils % (Manual) 17.0 % (0.0-4.3) H 10/15/16 15:11 Basophils % (Manual) 0 % (0.0-1.8) 10/15/16 15:11 Metamyelocytes % 0 % 10/15/16 15:11 Myelocytes % 0 % 10/15/16 15:11 Promyelocytes % 0 % 10/15/16 15:11 Blast Cells % 0 % 10/15/16 15:11 Nucleated RBC % Not Reportable 10/15/16 15:11 Seg Neutrophils # 9.1 K/mm3 (1.8-7.7) H 10/17/16 07:23 Seg Neutrophils # Man 6.5 K/mm3 (1.8-7.7) 10/15/16 15:11 Band Neutrophils # 0.0 K/mm3 10/15/16 15:11 Lymphocytes # (Manual) 0.6 K/mm3 (1.2-5.4) L 10/15/16 15:11 Abs React Lymphs (Man) 0.0 K/mm3 10/15/16 15:11 Monocytes # (Manual) 1.1 K/mm3 (0.0-0.8) H 10/15/16 15:11 Eosinophils # (Manual) 1.7 K/mm3 (0.0-0.4) H 10/15/16 15:11 Basophils # (Manual) 0.0 K/mm3 (0.0-0.1) 10/15/16 15:11 Metamyelocytes # 0.0 K/mm3 10/15/16 15:11 Myelocytes # 0.0 K/mm3 10/15/16 15:11 Promyelocytes # 0.0 K/mm3 10/15/16 15:11 Blast Cells # 0.0 K/mm3 10/15/16 15:11 WBC Morphology Not Reportable 10/15/16 15:11 Hypersegmented Neuts Not Reportable 10/15/16 15:11 Hyposegmented Neuts Not Reportable 10/15/16 15:11 Hypogranular Neuts Not Reportable 10/15/16 15:11 Smudge Cells Not Reportable 10/15/16 15:11 Toxic Granulation Not Reportable 10/15/16 15:11 Toxic Vacuolation Not Reportable 10/15/16 15:11 Dohle Bodies Not Reportable 10/15/16 15:11 Pelger-Huet Anomaly Not Reportable 10/15/16 15:11 Lizette Rods Not Reportable 10/15/16 15:11 Platelet Estimate Consistent w auto 10/15/16 15:11 Clumped Platelets Not Reportable 10/15/16 15:11 Plt Clumps, EDTA Not Reportable 10/15/16 15:11 Large Platelets Not Reportable 10/15/16 15:11 Giant Platelets Not Reportable 10/15/16 15:11 Platelet Satelliting Not Reportable 10/15/16 15:11 Plt Morphology Comment Not Reportable 10/15/16 15:11 RBC Morphology Normal 10/15/16 15:11 Dimorphic RBCs Not Reportable 10/15/16 15:11 Polychromasia Not Reportable 10/15/16 15:11 Hypochromasia Not Reportable 10/15/16 15:11 Poikilocytosis Not Reportable 10/15/16 15:11 Anisocytosis Not Reportable 10/15/16 15:11 Microcytosis Not Reportable 10/15/16 15:11 Macrocytosis Not Reportable 10/15/16 15:11 Spherocytes Not Reportable 10/15/16 15:11 Pappenheimer Bodies Not Reportable 10/15/16 15:11 Sickle Cells Not Reportable 10/15/16 15:11 Target Cells Not Reportable 10/15/16 15:11 Tear Drop Cells Not Reportable 10/15/16 15:11 Ovalocytes Not Reportable 10/15/16 15:11 Helmet Cells Not Reportable 10/15/16 15:11 [place] Bodies Not Reportable 10/15/16 15:11 [place] Rings Not Reportable 10/15/16 15:11 [place] Cells Not Reportable 10/15/16 15:11 Bite Cells Not Reportable 10/15/16 15:11 Crenated Cell Not Reportable 10/15/16 15:11 Elliptocytes Not Reportable 10/15/16 15:11 Acanthocytes (Spur) Not Reportable 10/15/16 15:11 Rouleaux Not Reportable 10/15/16 15:11 Hemoglobin C Crystals Not Reportable 10/15/16 15:11 Schistocytes Not Reportable 10/15/16 15:11 Malaria parasites Not Reportable 10/15/16 15:11 Ramon Bodies Not Reportable 10/15/16 15:11 Hem Pathologist Commnt No 10/15/16 15:11 D-Dimer 549.28 ng/mlDDU (0-234) H 10/16/16 17:39 POC ABG pH 7.355 (7.35-7.45) 10/16/16 03:24 POC ABG pCO2 39.6 (35-45) 10/16/16 03:24 POC ABG pO2 55 (80-105) L 10/16/16 03:24 POC ABG HCO3 22.1 10/16/16 03:24 POC ABG Total CO2 23 10/16/16 03:24 POC ABG O2 Sat 87 10/16/16 03:24 POC ABG Base Excess -3 10/16/16 03:24 FiO2 21 % 10/16/16 03:24 Sodium 138 mmol/L (137-145) 10/17/16 16:07 Potassium 4.3 mmol/L (3.6-5.0) 10/17/16 16:07 Chloride 100.7 mmol/L (98-107) 10/17/16 16:07 Carbon Dioxide 21 mmol/L (22-30) L 10/17/16 16:07 Anion Gap 21 mmol/L 10/17/16 16:07 BUN 29 mg/dL (9-20) H 10/17/16 16:07 Creatinine 1.5 mg/dL (0.8-1.5) 10/17/16 16:07 Estimated GFR 53 ml/min 10/17/16 16:07 BUN/Creatinine Ratio 19.33 % 10/17/16 16:07 Glucose 133 mg/dL (75-100) H 10/17/16 16:07 Lactic Acid 3.4 mmol/L (0.7-2.0) H* 10/16/16 06:48 Calcium 8.6 mg/dL (8.4-10.2) 10/17/16 16:07 Total Creatine Kinase 445 units/L (55-170) H 10/16/16 03:03 CK-MB (CK-2) 2.5 ng/mL (0.0-4.0) 10/15/16 15:11 CK-MB (CK-2) Rel Index 0.6 (0-4) 10/15/16 15:11 Troponin T < 0.010 ng/mL (0.00-0.029) 10/16/16 03:03 NT-Pro-B Natriuret Pep 412.8 pg/mL (0-450) 10/16/16 03:03
[2016-10-18] MEDS: NACL 0.9% 1000 ML 1,000 ML IV SCH (02:46)
[2016-10-18 08:09] LABS: BUN/Creatinine Ratio 17.85; Calcium 8.3 mg/dL (8.4-10.2); Chloride 105.3 mmol/L (98-107); Potassium 4.6 mmol/L (3.6-5.0)
[2016-10-18] MEDS ORDERED: DELTASONE PO SCH (10:00)
[2016-10-18] MEDS ORDERED: NORVASC PO SCH (11:00)
[2016-10-18] MEDS: PROTONIX PO SCH (11:53)
--- NOTE | 2016-10-18 12:09 | Discharge Summary ---
Providers - Providers Date of Admission: 10/16/16 03:51 Date of discharge: 10/18/16 Attending physician: BRENDA JULIAN 10/16/16 16:35 Consult to Physician [CONS] Routine Consulting Provider: FELY HOUSE Reason For Exam: acute resp failure, shortness of breath Place consult to:: Dr. House Notified:: yes Phone number called:: [phone] Was contact made?: Yes If yes, spoke with:: Jennyfer Time called:: 16:45 Primary care physician: BETTY OCAMPO Hospitalization Condition: Good Hospital course: Patient is 36-year-old presented with cough, shortness of breath, and wheezing. In emergency department he was found to be hypoxic ABG showing a PO2 of 55 and oxygen saturation of 87% on room air. His x-ray was unremarkable. He was put on oxygen, steroids and admitted for further management. Pulmonology was consulted and he was evaluated. He improved over the next couple days. V/Q scan was negative. He was diagnosed with acute bronchitis and was discharged home on steroids to be followed as an outpatient. Lisinopril was discontinued as this may be why he had a chronic cough. He was started on Norvasc to be continued on discharge. Total time spent on discharge , 32 minutes Disposition: DISCHARGED TO HOME OR SELFCARE - Discharge Diagnoses (1) Acute respiratory failure with hypoxia Status: Acute (2) Acute bronchitis Status: Acute Qualifiers: Bronchitis organism: B (3) Acute kidney injury Status: Acute (4) GERD (gastroesophageal reflux disease) Status: Acute Qualifiers: Esophagitis presence: E (5) HTN (hypertension) Status: Chronic Qualifiers: Hypertension type: H Core Measure Documentation - Palliative Care Palliative Care/ Comfort Measures: Not Applicable - Core Measures Any of the following diagnoses?: none Exam - Constitutional Vitals: Temp Pulse Resp BP Pulse Ox 98.4 F 67 20 143/76 91 10/18/16 11:41 10/18/16 11:53 10/18/16 11:41 10/18/16 11:53 10/17/16 22:59 Plan Activity: no restrictions Diet: low fat, low cholesterol, low salt Additional Instructions: 1. Follow up with primary care physician in one week Follow up with: BETTY OCAMPO MD [Primary Care Provider] - 3-5 Days Prescriptions: Pantoprazole [Protonix TAB] 40 mg PO BID #60 tablet Prednisone [predniSONE 5 mg (6-Day Pack, 21 Tabs)] 5 mg PO .TAPER #1 tab.ds.pk
[2016-10-18] MEDS ORDERED: APRESOLINE IV ONE (15:21)
[2016-10-18 17:01] VITALS: BP 150/92
== END 2016-10-18 18:20 | disposition home or self-care (01) | DRG 871 ==
LOC: ED 14:14 → 3A 10-16 03:51
PROVIDERS: ADMIT Hospitalist; ATTEND Internal Medicine
PROC: 4A033R1 Measurement of Arterial Saturation, Peripheral, Percutaneous Approach (ICD-10-PCS; principal; 2016-10-16)
DX: A41.9 Sepsis, unspecified organism (principal); J96.01 Acute respiratory failure with hypoxia; N17.9 Acute kidney failure, unspecified; J45.909 Unspecified asthma, uncomplicated; I10 Essential (primary) hypertension; F17.210 Nicotine dependence, cigarettes, uncomplicated; F41.9 Anxiety disorder, unspecified; J20.9 Acute bronchitis, unspecified; K21.9 Gastro-esophageal reflux disease without esophagitis; Z91.02 Food additives allergy status; Z98.890 Other specified postprocedural states; F12.929 Cannabis use, unspecified with intoxication, unspecified; Z71.6 Tobacco abuse counseling
CPT/HCPCS: 36415; 71020; 78582; 80048; 82140; 82550; 82553; 82803; 83880; 84484; 85007; 85025; 85379; 87040; 87400; 90686; 90732; 93005; 93010; 94640; 94644; 94760; 96365; 96366; 96367; 96375; 99406; A9540; A9558; J0360; J1650; J1885; J1956; J2920; J2930; J3475; J7030; J7512